=== PATIENT | male | born 1980 | race Caucasian/White ===

== ENCOUNTER → 2022-06-22 10:24 | Outpatient (BNVA) | payer MEDICARE, SELFPAY | PROVIDERS: Family Provider Family Medicine; PCP Family Medicine; Visit Provider Family Medicine | DX: B19.10 Unspecified viral hepatitis B without hepatic coma (principal); B19.20 Unspecified viral hepatitis C without hepatic coma; E55.9 Vitamin D deficiency, unspecified; I10 Essential (primary) hypertension; R53.81 Other malaise; R53.83 Other fatigue; Z51.81 Encounter for therapeutic drug level monitoring; E03.9 Hypothyroidism, unspecified; R73.09 Other abnormal glucose; F41.9 Anxiety disorder, unspecified; R51.9 Headache, unspecified; G89.29 Other chronic pain; Z87.820 Personal history of traumatic brain injury | CPT/HCPCS: 80053; 82306; 83036; 84443; 85025 ==